=== PATIENT | female | born 1985 | race Caucasian/White ===

== ENCOUNTER → 2020-02-22 | Outpatient (CLI) | payer OTHER, SELFPAY ==
[2020-02-22 10:28] VITALS: BMI 27.3
[2020-02-24 16:12] LABS: HPV APTIMA, High Risk Negative (Negative)
== END | disposition home or self-care (01) ==
LOC: LABSPEC 12:18
PROVIDERS: PCP Student in an Organized Health Care Education/Training Program; Visit Provider Nurse Practitioner Women's Health
DX: Z12.4 Encounter for screening for malignant neoplasm of cervix (principal)
CPT/HCPCS: 87624; 88175; G0145